=== PATIENT | female | born 1950 | race Caucasian/White ===

== ENCOUNTER → 2016-09-17 | Outpatient (CLI) | payer BC, MEDICARE ==
[~2016-09-17] MED LIST: AMLO2.5T PO; BISA5TAB PO; CALC1TAB PO; DEXA4TAB PO; DOCU100C PO; FAMO20TA8 PO; HYDR-3989 PO; IBUP-14 PO; LISI40TA4 PO; METO-230 PO; METO50TA5 PO; MORP15TA78 PO; MULT-933 PO; RANI150T7 PO; RIVA15TA PO
--- NOTE | 2016-09-17 09:35 | DI ---
INDICATION: ITS.REASON: C50.412 LEFT BREAST CA; C50.511 RIGHT BREAST CA PROCEDURE: CHEST 2-VIEWS UPRIGHT (PA \T\ LAT) Encounter: Subsequent COMPARISON: March 18, 2016 FINDINGS: Chronic small right pleural effusion with lower lobe compressive atelectasis. Prominent interstitial markings in the left lower lung grewal are unchanged. No pneumothorax. Heart size and mediastinal contours are stable. Prior bone cement procedures. Impression: Stable appearance of the chest with chronic right pleural effusion. .
== END ==
LOC: IMA 08:34
PROVIDERS: ATTEND Internal Medicine Medical Oncology
DX: C50.412 Malignant neoplasm of upper-outer quadrant of left female breast (principal); C50.511 Malignant neoplasm of lower-outer quadrant of right female breast; J90 Pleural effusion, not elsewhere classified; J98.11 Atelectasis

== ENCOUNTER 2017-03-10 10:01 | Inpatient (IN) ==
[2017-03-10 10:29] VITALS: BMI 17.6
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
[2017-03-10] MEDS ORDERED: LR 1,000 ML IV SCH (11:15)
[2017-03-10] MEDS ORDERED: ONDANSETRON 4 MG/2 ML INJECTION IVP ONE (11:21)
[2017-03-10] MEDS ORDERED: HYDRALAZINE 20 MG/ML INJECTION IVP ONE (11:26)
[2017-03-10] MEDS: LISINOPRIL 40 MG TABLET PO SCH (12:21)
[2017-03-10] MEDS: PANTOPRAZOLE 40 MG INJECTION IVP SCH ×2 (12:41→21:03)
[2017-03-10] MEDS: NS 1,000 ML IV SCH ×2 (13:03→23:56)
[2017-03-10] MEDS: ONDANSETRON 4 MG/2 ML INJECTION IVP SCH ×2 (14:48→19:47)
[2017-03-10] MEDS: MORPHINE SULFATE 2mg INJECTION IVP PRN ×3 (14:48→20:58)
[2017-03-10] MEDS: HYDRALAZINE 20 MG/ML INJECTION IVP PRN (19:49)
[2017-03-10] MEDS: SALINE FLUSH 10ml SYRINGE IV PRN (21:00)
[2017-03-10] MEDS: MIRTAZAPINE 15 MG TABLET PO SCH ×2 (21:00→21:02)
[2017-03-10] MEDS ORDERED: SENNOSIDES 8.6 MG TABLET PO SCH (21:00)
[2017-03-10] MEDS: SENNOSIDES 25 MG PO SCH ×2 (21:00→21:09)
[2017-03-10] MEDS: MELATONIN 10 MG TABLET PO SCH ×2 (21:00→21:02)
[2017-03-10] MEDS ORDERED: SCOPOLAMINE 1.5 MG PATCH TD SCH (21:00)
[2017-03-10] MEDS ORDERED: BISACODYL 10 MG SUPPOSITORY RECTALLY ONE (21:11)
[2017-03-10] MEDS: MORPHINE SULFATE 4mg INJECTION IVP PRN (22:21)
[2017-03-10] MEDS: PROMETHAZINE 25 MG INJECTION IVP PRN (23:00)
[2017-03-11] MEDS: ONDANSETRON 4 MG/2 ML INJECTION IVP SCH ×2 (01:41→05:06)
[2017-03-11] MEDS: MORPHINE SULFATE 4mg INJECTION IVP PRN ×3 (05:08→17:04)
[2017-03-11] MEDS: PROMETHAZINE 25 MG INJECTION IVP PRN ×3 (05:11→18:46)
[2017-03-11] MEDS: SALINE FLUSH 10ml SYRINGE IV PRN ×2 (05:17→18:46)
[2017-03-11] MEDS ORDERED: PRENATAL VITAMIN TABLET PO SCH (09:00)
--- NOTE | 2017-03-11 09:16 | XRay Report ---
INDICATION: pleural effusions PROCEDURE: CHEST 2-VIEWS UPRIGHT (PA & LAT) Encounter: Initial COMPARISON: March 02, 2017 FINDINGS: Increasing bilateral pleural effusions which remain small. Worsening lower lobe compressive atelectasis, right greater than left. No pneumothorax on this semiupright view. Heart size and mediastinal contours are stable. Pulmonary vascularity is stable. Prior vertebroplasty procedures with bone cement seen in a pulmonary vein. Impression: Increasing small pleural effusions. .
[2017-03-11] MEDS: NS 1,000 ML IV SCH (10:24)
[2017-03-11] MEDS: LISINOPRIL 40 MG TABLET PO SCH (10:34)
[2017-03-11] MEDS: PANTOPRAZOLE 40 MG INJECTION IVP SCH ×2 (10:37→21:11)
[2017-03-11] MEDS: ENOXAPARIN 40 MG/0.4 ML INJECTION SQ SCH (10:38)
[2017-03-11] MEDS: ESCITALOPRAM 5 MG TABLET PO SCH (10:39)
--- NOTE | 2017-03-11 16:08 | Progress Note ---
- Date 03/11/17 Subjective: Mrs. Damon is sleeping. She had morphine and Phenergan earlier. A daughter-in- law is present. She does not think the patient slept well. Her returns. CM present. Family is favoring comfort care and will be meeting with hospice later today. They are trying to decide between home with hospice and going to NH with hospice. Family reports she had pain within an hour of waking and required more meds. Objective Vital signs: Temperature 99.1 F 03/11/17 15:34 Pulse Rate 83 03/11/17 15:34 Respiratory Rate 14 03/11/17 15:34 Blood Pressure 159/89 H 03/11/17 15:34 Pulse Oximetry 94 03/11/17 15:34 Height/Weight/BMI: Height 5 ft 5 in Weight 48.8 kg Body Mass Index 17.6 - Constitutional Present: somnolent - Routine Respiratory Exam Present: diminished air movement - Routine Cardiovascular Exam Present: RRR - Routine Abdominal Exam Present: soft, normoactive bowel sounds, non distended. Absent: tenderness - Routine Neurological Exam sleeping Results - Labs CBC & Chem 7: 03/10/17 11:43 03/10/17 11:43 Assessment and Plan (1) Breast cancer metastasized to bone Current visit: Yes Status: Acute (2) Chemotherapy-induced nausea and vomiting Current visit: Yes Status: Acute (3) Essential hypertension Current visit: Yes Status: Acute Assessment and Plan: Assessment Breast cancer-currently treated with chemotherapy Progressive weakness/debility Cerebral edema Nausea and vomiting Recent UTI History of PE Chronic anticoagulation with Xarelto Hypertension Incontinence Back pain -chronic Constipation Depression Plan Scopolamine added this am. Unclear whether it is helping. Continue to limit pills d/t n/v. BP comes down when able to take meds. Continue morphine and Phenergan. d/w son that controlling nausea may bring significant sedation. IVF stopped d/t increasing pleural effusions and of no benefit if comfort care. Continue morphine prn and fentanyl for pain. Hospital Course Summary Disclaimer: The visit summary below is not to be considered part of the above Progress Note. Hospital Course: Assessment Breast cancer-currently treated with chemotherapy Progressive weakness/debility Cerebral edema Nausea and vomiting Recent UTI History of PE Chronic anticoagulation with Xarelto Hypertension Incontinence Back pain -chronic Constipation Depression 03/10/17-hospital admission for observation Admit patient observation status under hospitalist service (Dr. Blankenship, attending) for IV fluids, antiemetics, and pain control. Lovenox and SCDs for DVT prevention. She is normally on Xarelto, but given her nausea and vomiting will hold this for now. IV Zofran routinely through tomorrow a.m., then can be given when necessary. Will continue her fentanyl patch for pain and use IV morphine as needed until she can tolerate p.o. [place]. Bolus 1 L of lactated Ringer's followed by normal saline at 100 cc per hour. Blood pressure is elevated on admission. Will administer her lisinopril and metoprolol. If blood pressure does not improve, will have prn hydralazine available. Given the results of her urine culture, negative urinalysis today, and the fact that she only has less than a day left of treatment, will DC cephalexin at this time. Patient requests DO NOT RESUSCITATE status Patient's family to review options regarding further care. Will discuss further tomorrow. Case discussed with Dr. Blankenship, Dr. Lucas, and family. Patient's care to return to Dr. Lucas and Boogie upon discharge. 03/10/17 21:18 IVF were started. Scheduling IV Zofran and starting a scopolamine patch. Phenergan to be available prn. Will try a suppository to help address constipation. Minimizing oral meds, but will need to continue antihypertensives. 03/11/17 16:23 Scopolamine added this am. Unclear whether it is helping. Continue to limit pills d/t n/v. BP comes down when able to take meds. Continue morphine and Phenergan. d/w son that controlling nausea may bring significant sedation. IVF stopped d/t increasing pleural effusions and of no benefit if comfort care. Continue morphine prn and fentanyl for pain.
[2017-03-11] MEDS: SENNOSIDES 25 MG PO SCH (21:12)
[2017-03-11] MEDS: MELATONIN 10 MG TABLET PO SCH (21:17)
[2017-03-12] MEDS: HYDRALAZINE 20 MG/ML INJECTION IVP PRN (00:30)
[2017-03-12] MEDS: MORPHINE SULFATE 4mg INJECTION IVP PRN ×6 (01:14→19:36)
[2017-03-12] MEDS: PROMETHAZINE 25 MG INJECTION IVP PRN ×3 (04:44→19:36)
[2017-03-12] MEDS: LISINOPRIL 40 MG TABLET PO SCH (08:57)
[2017-03-12] MEDS: ENOXAPARIN 40 MG/0.4 ML INJECTION SQ SCH (08:58)
[2017-03-12] MEDS ORDERED: ESCITALOPRAM 10 MG TABLET PO SCH (09:00)
[2017-03-12] MEDS: PANTOPRAZOLE 40 MG INJECTION IVP SCH ×2 (09:00→22:29)
[2017-03-12] MEDS: ESCITALOPRAM 5 MG TABLET PO SCH (10:07)
[2017-03-12] MEDS: KETOROLAC 15 MG/ML INJECTION IM SCH ×3 (10:25→22:26)
--- NOTE | 2017-03-12 10:26 | Progress Note ---
- Date 03/12/17 Subjective: Mrs. Damon says pain and nausea are still a big problem. She says her pain is in her abdomen. She agrees with comfort care, as does her . She has little interest in eating. says 2 NH have not had a bed for her. Family does prefer to continue BP meds unless patient can no longer tolerate them. d/w them adding Toradol to help with bone pain. Objective Vital signs: Temperature 98.1 F 03/12/17 07:45 Pulse Rate 94 03/12/17 07:45 Respiratory Rate 18 03/12/17 07:45 Blood Pressure 142/74 H 03/12/17 07:45 Pulse Oximetry 94 03/12/17 07:45 Height/Weight/BMI: Height 5 ft 5 in Weight 47.8 kg Body Mass Index 17.6 - Constitutional Present: somnolent - Routine HEENT Exam Eye: Present: EOMI ENT: Present: mucous membranes moist, dentition normal - Routine Respiratory Exam Present: diminished air movement - Routine Cardiovascular Exam Present: RRR. Absent: murmur - Routine Abdominal Exam Present: soft, normoactive bowel sounds, non distended. Absent: tenderness - Routine Extremities Exam Absent: edema Results - Labs CBC & Chem 7: 03/10/17 11:43 03/10/17 11:43 Assessment and Plan (1) Breast cancer metastasized to bone Current visit: Yes Status: Acute (2) Chemotherapy-induced nausea and vomiting Current visit: Yes Status: Acute (3) Essential hypertension Current visit: Yes Status: Acute Assessment and Plan: Assessment Breast cancer with bone mets-chemotherapy on hold Progressive weakness/debility Cerebral edema Nausea and vomiting Recent UTI History of PE Chronic anticoagulation with Xarelto Hypertension Incontinence Back pain -chronic Constipation Depression Plan Comfort care. Family aware controlling sx may continue to require meds that will sedate her. Scopolamine patch and prn Phenergan to continue. Continue fentanyl patch and prn morphine. Will schedule Toradol. Continue lisinopril and metoprolol as tolerated. Family looking for NH, and hospice will follow. Hospital Course Summary Disclaimer: The visit summary below is not to be considered part of the above Progress Note. Hospital Course: Assessment Breast cancer-currently treated with chemotherapy Progressive weakness/debility Cerebral edema Nausea and vomiting Recent UTI History of PE Chronic anticoagulation with Xarelto Hypertension Incontinence Back pain -chronic Constipation Depression 03/10/17-hospital admission for observation Admit patient observation status under hospitalist service (Dr. Blankenship, attending) for IV fluids, antiemetics, and pain control. Lovenox and SCDs for DVT prevention. She is normally on Xarelto, but given her nausea and vomiting will hold this for now. IV Zofran routinely through tomorrow a.m., then can be given when necessary. Will continue her fentanyl patch for pain and use IV morphine as needed until she can tolerate p.o. [place]. Bolus 1 L of lactated Ringer's followed by normal saline at 100 cc per hour. Blood pressure is elevated on admission. Will administer her lisinopril and metoprolol. If blood pressure does not improve, will have prn hydralazine available. Given the results of her urine culture, negative urinalysis today, and the fact that she only has less than a day left of treatment, will DC cephalexin at this time. Patient requests DO NOT RESUSCITATE status Patient's family to review options regarding further care. Will discuss further tomorrow. Case discussed with Dr. Blankenship, Dr. Lucas, and family. Patient's care to return to Dr. Lucas and Boogie upon discharge. 03/10/17 21:18 IVF were started. Scheduling IV Zofran and starting a scopolamine patch. Phenergan to be available prn. Will try a suppository to help address constipation. Minimizing oral meds, but will need to continue antihypertensives. 03/11/17 16:23 Scopolamine added this am. Unclear whether it is helping. Continue to limit pills d/t n/v. BP comes down when able to take meds. Continue morphine and Phenergan. d/w son that controlling nausea may bring significant sedation. IVF stopped d/t increasing pleural effusions and of no benefit if comfort care. Continue morphine prn and fentanyl for pain. 03/12/17 10:35 Comfort care. Family aware controlling sx may continue to require meds that will sedate her. Scopolamine patch and prn Phenergan to continue. Continue fentanyl patch and prn morphine. Will schedule Toradol. Continue lisinopril and metoprolol as tolerated. Family looking for NH, and hospice will follow.
[2017-03-12] MEDS: ONDANSETRON 4 MG/2 ML INJECTION IVP PRN (17:23)
[2017-03-12] MEDS: SALINE FLUSH 10ml SYRINGE IV PRN (19:37)
[2017-03-12] MEDS: MELATONIN 10 MG TABLET PO SCH (22:33)
[2017-03-13] MEDS: KETOROLAC 15 MG/ML INJECTION IVP SCH ×4 (04:08→22:50)
[2017-03-13] MEDS: KETOROLAC 15 MG/ML INJECTION IM SCH (04:48)
[2017-03-13] MEDS: MELATONIN 5 MG TABLET PO SCH ×2 (06:35→22:39)
[2017-03-13] MEDS: ONDANSETRON 4 MG/2 ML INJECTION IVP PRN ×2 (06:44→13:51)
[2017-03-13] MEDS: MORPHINE SULFATE 4mg INJECTION IVP PRN ×3 (06:44→20:19)
[2017-03-13] MEDS ORDERED: SCOPOLAMINE PATCH REMOVAL TD SCH (09:00)
[2017-03-13] MEDS: PROMETHAZINE 25 MG INJECTION IVP PRN ×2 (09:15→20:20)
[2017-03-13] MEDS: PANTOPRAZOLE 40 MG INJECTION IVP SCH ×2 (09:17→20:20)
[2017-03-13] MEDS: LISINOPRIL 40 MG TABLET PO SCH (10:22)
[2017-03-13] MEDS ORDERED: METOCLOPRAMIDE 10mg/2ml INJECTION IVP PRN (11:53)
[2017-03-13] MEDS ORDERED: MORPHINE SULFATE 10mg/0.5ml ORAL LIQ SL PRN (11:53)
[2017-03-13] MEDS ORDERED: SCOPOLAMINE 1.5 MG PATCH TD SCH (12:00)
[2017-03-13] MEDS ORDERED: HALOPERIDOL 0.5 MG TABLET PO PRN (14:26)
--- NOTE | 2017-03-13 14:47 | Progress Note ---
- Date 03/13/17 Subjective: Mrs. Damon says her pain and nausea are improved. She is needing frequent meds to control these. Her daughter says she took a few sips of water and some ice chips. Objective Vital signs: Temperature 98.1 F 03/13/17 00:00 Pulse Rate 94 03/13/17 08:00 Respiratory Rate 16 03/13/17 08:00 Blood Pressure 141/73 H 03/13/17 08:00 Pulse Oximetry 93 03/13/17 08:00 Height/Weight/BMI: Height 5 ft 5 in Weight 47 kg Body Mass Index 17.6 - Constitutional Present: mild distress - Routine HEENT Exam Eye: Present: EOMI ENT: Present: mucous membranes moist, dentition normal - Routine Respiratory Exam Present: diminished air movement - Routine Cardiovascular Exam Present: RRR, S1, S2, no murmur - Routine Abdominal Exam Present: soft, non distended, non tender - Routine Extremities Exam Absent: cyanosis, clubbing, edema Results - Labs CBC & Chem 7: 03/10/17 11:43 03/10/17 11:43 Assessment and Plan (1) Breast cancer metastasized to bone Current visit: Yes Status: Acute (2) Chemotherapy-induced nausea and vomiting Current visit: Yes Status: Acute (3) Essential hypertension Current visit: Yes Status: Acute Assessment and Plan: Assessment Breast cancer with bone mets-chemotherapy on hold Progressive weakness/debility Cerebral edema Nausea and vomiting Recent UTI History of PE Chronic anticoagulation with Xarelto Hypertension Incontinence Back pain -chronic Constipation Depression Plan Comfort care. Will begin inpatient hospice with [facility] following. Pain improved with Toradol and will continue it. Will continue fentanyl patch and convert iv morphine to roxanol. Will add prn Haldol to scheduled Zofran, prn phenergan and scopolamine patch. Add Decadron. Continue BP meds as long as she can tolerate them. Hospital Course Summary Disclaimer: The visit summary below is not to be considered part of the above Progress Note. Hospital Course: Assessment Breast cancer-currently treated with chemotherapy Progressive weakness/debility Cerebral edema Nausea and vomiting Recent UTI History of PE Chronic anticoagulation with Xarelto Hypertension Incontinence Back pain -chronic Constipation Depression 03/10/17-hospital admission for observation Admit patient observation status under hospitalist service (Dr. Blankenship, attending) for IV fluids, antiemetics, and pain control. Lovenox and SCDs for DVT prevention. She is normally on Xarelto, but given her nausea and vomiting will hold this for now. IV Zofran routinely through tomorrow a.m., then can be given when necessary. Will continue her fentanyl patch for pain and use IV morphine as needed until she can tolerate p.o. [place]. Bolus 1 L of lactated Ringer's followed by normal saline at 100 cc per hour. Blood pressure is elevated on admission. Will administer her lisinopril and metoprolol. If blood pressure does not improve, will have prn hydralazine available. Given the results of her urine culture, negative urinalysis today, and the fact that she only has less than a day left of treatment, will DC cephalexin at this time. Patient requests DO NOT RESUSCITATE status Patient's family to review options regarding further care. Will discuss further tomorrow. Case discussed with Dr. Blankenship, Dr. Lucas, and family. Patient's care to return to Dr. Lucas and Boogie upon discharge. 03/10/17 21:18 IVF were started. Scheduling IV Zofran and starting a scopolamine patch. Phenergan to be available prn. Will try a suppository to help address constipation. Minimizing oral meds, but will need to continue antihypertensives. 03/11/17 16:23 Scopolamine added this am. Unclear whether it is helping. Continue to limit pills d/t n/v. BP comes down when able to take meds. Continue morphine and Phenergan. d/w son that controlling nausea may bring significant sedation. IVF stopped d/t increasing pleural effusions and of no benefit if comfort care. Continue morphine prn and fentanyl for pain. 03/12/17 10:35 Comfort care. Family aware controlling sx may continue to require meds that will sedate her. Scopolamine patch and prn Phenergan to continue. Continue fentanyl patch and prn morphine. Will schedule Toradol. Continue lisinopril and metoprolol as tolerated. Family looking for NH, and hospice will follow. 03/13/17 15:04 Comfort care. Will begin inpatient hospice with [facility] following. Pain improved with Toradol and will continue it. Will continue fentanyl patch and convert iv morphine to roxanol. Will add prn Haldol to scheduled Zofran, prn phenergan and scopolamine patch. Add Decadron. Continue BP meds as long as she can tolerate them.
[2017-03-13] MEDS: LORazepam 0.5 MG TABLET PO SCH ×2 (15:04→20:18)
[2017-03-13] MEDS: DEXAMETHASONE 4 MG/ML INJECTION IVP SCH (16:35)
[2017-03-13] MEDS: MORPHINE SULFATE 10mg/0.5ml ORAL LIQ SL SCH (17:12)
[2017-03-13] MEDS: MORPHINE SULFATE 10mg/0.5ml ORAL LIQ SL PRN (18:11)
[2017-03-13] MEDS: SALINE FLUSH 10ml SYRINGE IV PRN (20:21)
[2017-03-14] MEDS: MORPHINE SULFATE 10mg/0.5ml ORAL LIQ SL SCH ×4 (00:06→17:33)
[2017-03-14] MEDS: LORazepam 0.5 MG TABLET PO SCH ×4 (02:43→21:22)
[2017-03-14] MEDS: ONDANSETRON 4 MG/2 ML INJECTION IVP PRN ×2 (02:44→21:24)
[2017-03-14] MEDS: MORPHINE SULFATE 10mg/0.5ml ORAL LIQ SL PRN ×4 (02:44→21:25)
[2017-03-14] MEDS: PROMETHAZINE 25 MG INJECTION IVP PRN ×3 (04:22→17:34)
[2017-03-14] MEDS: DEXAMETHASONE 4 MG/ML INJECTION IVP SCH ×2 (04:23→15:51)
[2017-03-14] MEDS: SALINE FLUSH 10ml SYRINGE IV PRN ×2 (04:24→21:25)
[2017-03-14] MEDS: KETOROLAC 15 MG/ML INJECTION IVP SCH ×4 (04:24→21:24)
[2017-03-14] MEDS: LISINOPRIL 40 MG TABLET PO SCH (08:18)
[2017-03-14] MEDS: PANTOPRAZOLE 40 MG INJECTION IVP SCH ×2 (08:18→21:23)
--- NOTE | 2017-03-14 09:15 | Progress Note ---
<Denise Chacon V - Last Filed: 03/14/17 09:10> - Date 03/14/17 Subjective: Danisha is seen this morning while resting comfortably in bed. Her daughter is at the bedside and reports she has some intermittent episodes of confusion. Otherwise family is pleased with the comfort level. Princess denies pain at time of examination. She reports nausea is currently under control. Vital signs stable, Breathing on room air without distress. Objective Vital signs: Temperature 96.9 F 03/14/17 07:07 Pulse Rate 90 03/14/17 07:07 Respiratory Rate 16 03/14/17 07:07 Blood Pressure 134/83 03/14/17 07:07 Pulse Oximetry 94 03/14/17 07:07 Height/Weight/BMI: Height 1.65 m Weight 46.3 kg Body Mass Index 17.6 - Constitutional Present: no acute distress, well developed - Routine HEENT Exam Eye: Present: EOMI ENT: Present: mucous membranes moist, dentition normal - Routine Respiratory Exam Present: CTA bilaterally. Absent: wheezes - Routine Cardiovascular Exam Present: RRR, S1, S2. Absent: murmur - Routine Abdominal Exam Present: soft, normoactive bowel sounds, non distended. Absent: tenderness - Routine Skin Exam Present: intact, dry, warm - Routine Neurological Exam Present: alert, CN II-XII intact - Routine Lymphatic Exam Lymphatic: Absent: adenopathy - Routine Psychiatric Exam Present: cooperative Results - Labs CBC & Chem 7: 03/10/17 11:43 03/10/17 11:43 Assessment and Plan (1) Breast cancer metastasized to bone Current visit: Yes Status: Acute (2) Chemotherapy-induced nausea and vomiting Current visit: Yes Status: Acute (3) Essential hypertension Current visit: Yes Status: Acute Assessment and Plan: Assessment Breast cancer with bone mets-chemotherapy on hold Progressive weakness/debility Cerebral edema Nausea and vomiting Recent UTI History of PE Chronic anticoagulation with Xarelto Hypertension Incontinence Back pain -chronic Constipation Depression Plan Remains Comfort care with [facility]. Today pain and nausea appear to be much better controlled. Continue on Fentanyl patch with PO Roxanol. Scopolamine patch, along with Reglan, Phenergan and Zofran as needed for nausea control. Continues on BID Decadron Spoke with [facility] nurse. Planning for transfer to [facility] on Thursday Hospital Course Summary Disclaimer: The visit summary below is not to be considered part of the above Progress Note. Hospital Course: Assessment Breast cancer-currently treated with chemotherapy Progressive weakness/debility Cerebral edema Nausea and vomiting Recent UTI History of PE Chronic anticoagulation with Xarelto Hypertension Incontinence Back pain -chronic Constipation Depression 03/10/17-hospital admission for observation Admit patient observation status under hospitalist service (Dr. Blankenship, attending) for IV fluids, antiemetics, and pain control. Lovenox and SCDs for DVT prevention. She is normally on Xarelto, but given her nausea and vomiting will hold this for now. IV Zofran routinely through tomorrow a.m., then can be given when necessary. Will continue her fentanyl patch for pain and use IV morphine as needed until she can tolerate p.o. [place]. Bolus 1 L of lactated Ringer's followed by normal saline at 100 cc per hour. Blood pressure is elevated on admission. Will administer her lisinopril and metoprolol. If blood pressure does not improve, will have prn hydralazine available. Given the results of her urine culture, negative urinalysis today, and the fact that she only has less than a day left of treatment, will DC cephalexin at this time. Patient requests DO NOT RESUSCITATE status Patient's family to review options regarding further care. Will discuss further tomorrow. Case discussed with Dr. Blankenship, Dr. Lucas, and family. Patient's care to return to Dr. Lucas and Boogie upon discharge. 03/10/17 21:18 IVF were started. Scheduling IV Zofran and starting a scopolamine patch. Phenergan to be available prn. Will try a suppository to help address constipation. Minimizing oral meds, but will need to continue antihypertensives. 03/11/17 16:23 Scopolamine added this am. Unclear whether it is helping. Continue to limit pills d/t n/v. BP comes down when able to take meds. Continue morphine and Phenergan. d/w son that controlling nausea may bring significant sedation. IVF stopped d/t increasing pleural effusions and of no benefit if comfort care. Continue morphine prn and fentanyl for pain. 03/12/17 10:35 Comfort care. Family aware controlling sx may continue to require meds that will sedate her. Scopolamine patch and prn Phenergan to continue. Continue fentanyl patch and prn morphine. Will schedule Toradol. Continue lisinopril and metoprolol as tolerated. Family looking for NH, and hospice will follow. 03/13/17 15:04 Comfort care. Will begin inpatient hospice with [facility] following. Pain improved with Toradol and will continue it. Will continue fentanyl patch and convert iv morphine to roxanol. Will add prn Haldol to scheduled Zofran, prn phenergan and scopolamine patch. Add Decadron. Continue BP meds as long as she can tolerate them. 03/14/17 -Remains Comfort care with [facility]. Today pain and nausea appear to be much better control on Fentanyl patch with PO Roxanol. Scopolamine patch, along with Reglan, Phenergan and Zofran as needed for nausea control. Planning for transfer to [facility] on Thursday <Oleksandr Cohn - Last Filed: 03/14/17 17:04> - Date 03/14/17 Objective Vital signs: Temperature 97.7 F 03/14/17 15:18 Pulse Rate 96 03/14/17 15:18 Respiratory Rate 16 03/14/17 15:18 Blood Pressure 137/71 03/14/17 15:18 Pulse Oximetry 95 03/14/17 15:18 Height/Weight/BMI: Height 5 ft 5 in Weight 46.3 kg Body Mass Index 17.6 Results - Labs CBC & Chem 7: 03/10/17 11:43 03/10/17 11:43 Assessment and Plan (1) Breast cancer metastasized to bone Current visit: Yes Status: Acute (2) Chemotherapy-induced nausea and vomiting Current visit: Yes Status: Acute (3) Essential hypertension Current visit: Yes Status: Acute Assessment and Plan: Pt resting comfortably. Nausea seems to be better controlled with current regimen. Cont. to monitor and transfer when possible. I agree with SLOPE HOIST OPERATOR/AUDIOVISUAL LIBRARIAN evaluation and findings. I evaluated the patient independently and discussed the plan with SLOPE HOIST OPERATOR/AUDIOVISUAL LIBRARIAN. Hospital Course Summary Disclaimer: The visit summary below is not to be considered part of the above Progress Note.
[2017-03-14] MEDS: MELATONIN 5 MG TABLET PO SCH (21:56)
[2017-03-15] MEDS: MORPHINE SULFATE 10mg/0.5ml ORAL LIQ SL SCH ×4 (00:11→17:07)
[2017-03-15] MEDS: PROMETHAZINE 25 MG INJECTION IVP PRN ×3 (00:12→12:12)
[2017-03-15] MEDS: KETOROLAC 15 MG/ML INJECTION IVP SCH ×4 (03:15→21:01)
[2017-03-15] MEDS: LORazepam 0.5 MG TABLET PO SCH ×4 (03:16→21:01)
[2017-03-15] MEDS: SALINE FLUSH 10ml SYRINGE IV PRN ×3 (03:16→06:16)
[2017-03-15] MEDS: DEXAMETHASONE 4 MG/ML INJECTION IVP SCH ×2 (03:29→14:14)
[2017-03-15] MEDS: MORPHINE SULFATE 10mg/0.5ml ORAL LIQ SL PRN (04:22)
[2017-03-15] MEDS: PANTOPRAZOLE 40 MG INJECTION IVP SCH ×2 (08:07→21:03)
[2017-03-15] MEDS: LISINOPRIL 40 MG TABLET PO SCH (08:07)
[2017-03-15 15:56] VITALS: RESP 16
--- NOTE | 2017-03-15 16:11 | Progress Note ---
- Date 03/15/17 Subjective: Pt resting comfortably. Objective Vital signs: Temperature 96.4 F L 03/15/17 00:00 Pulse Rate 87 03/15/17 15:52 Respiratory Rate 16 03/15/17 15:52 Blood Pressure 138/92 H 03/15/17 15:52 Pulse Oximetry 93 03/15/17 15:52 Height/Weight/BMI: Height 5 ft 5 in Weight 46 kg Body Mass Index 17.6 Results - Labs CBC & Chem 7: 03/10/17 11:43 03/10/17 11:43 Assessment and Plan (1) Breast cancer metastasized to bone Current visit: Yes Status: Acute (2) Chemotherapy-induced nausea and vomiting Current visit: Yes Status: Acute (3) Essential hypertension Current visit: Yes Status: Acute Assessment and Plan: Pt resting comfortably. Nausea seems to be better controlled with current regimen. Cont. to monitor and transfer when possible. I agree with MICROBIOLOGY SOIL SCIENTIST/NEON SIGN WORKER evaluation and findings. I evaluated the patient independently and discussed the plan with MICROBIOLOGY SOIL SCIENTIST/NEON SIGN WORKER. Hospital Course Summary Disclaimer: The visit summary below is not to be considered part of the above Progress Note. Hospital Course: Assessment Breast cancer-currently treated with chemotherapy Progressive weakness/debility Cerebral edema Nausea and vomiting Recent UTI History of PE Chronic anticoagulation with Xarelto Hypertension Incontinence Back pain -chronic Constipation Depression 03/10/17-hospital admission for observation Admit patient observation status under hospitalist service (Dr. Blankenship, attending) for IV fluids, antiemetics, and pain control. Lovenox and SCDs for DVT prevention. She is normally on Xarelto, but given her nausea and vomiting will hold this for now. IV Zofran routinely through tomorrow a.m., then can be given when necessary. Will continue her fentanyl patch for pain and use IV morphine as needed until she can tolerate p.o. [place]. Bolus 1 L of lactated Ringer's followed by normal saline at 100 cc per hour. Blood pressure is elevated on admission. Will administer her lisinopril and metoprolol. If blood pressure does not improve, will have prn hydralazine available. Given the results of her urine culture, negative urinalysis today, and the fact that she only has less than a day left of treatment, will DC cephalexin at this time. Patient requests DO NOT RESUSCITATE status Patient's family to review options regarding further care. Will discuss further tomorrow. Case discussed with Dr. Blankenship, Dr. Lucas, and family. Patient's care to return to Dr. Lucas and Boogie upon discharge. 03/10/17 21:18 IVF were started. Scheduling IV Zofran and starting a scopolamine patch. Phenergan to be available prn. Will try a suppository to help address constipation. Minimizing oral meds, but will need to continue antihypertensives. 03/11/17 16:23 Scopolamine added this am. Unclear whether it is helping. Continue to limit pills d/t n/v. BP comes down when able to take meds. Continue morphine and Phenergan. d/w son that controlling nausea may bring significant sedation. IVF stopped d/t increasing pleural effusions and of no benefit if comfort care. Continue morphine prn and fentanyl for pain. 03/12/17 10:35 Comfort care. Family aware controlling sx may continue to require meds that will sedate her. Scopolamine patch and prn Phenergan to continue. Continue fentanyl patch and prn morphine. Will schedule Toradol. Continue lisinopril and metoprolol as tolerated. Family looking for NH, and hospice will follow. 03/13/17 15:04 Comfort care. Will begin inpatient hospice with [facility] following. Pain improved with Toradol and will continue it. Will continue fentanyl patch and convert iv morphine to roxanol. Will add prn Haldol to scheduled Zofran, prn phenergan and scopolamine patch. Add Decadron. Continue BP meds as long as she can tolerate them. 03/14/17 -Remains Comfort care with [facility]. Today pain and nausea appear to be much better control on Fentanyl patch with PO Roxanol. Scopolamine patch, along with Reglan, Phenergan and Zofran as needed for nausea control. Planning for transfer to [facility] on Thursday03/15/17 16:10 Remains comfort care with hospice following. N/v better controlled. Cont. current management with plan to transfer tomorrow to hospice.
[2017-03-15] MEDS: MELATONIN 5 MG TABLET PO SCH (21:01)
[2017-03-15] MEDS: ONDANSETRON 4 MG/2 ML INJECTION IVP PRN (21:08)
[2017-03-16] MEDS: MORPHINE SULFATE 10mg/0.5ml ORAL LIQ SL SCH ×3 (01:05→12:02)
[2017-03-16 01:12] VITALS: TEMP 96.2
[2017-03-16] MEDS: KETOROLAC 15 MG/ML INJECTION IVP SCH ×3 (03:45→15:39)
[2017-03-16] MEDS: DEXAMETHASONE 4 MG/ML INJECTION IVP SCH ×2 (03:45→15:38)
[2017-03-16] MEDS: LORazepam 0.5 MG TABLET PO SCH ×3 (03:45→13:55)
[2017-03-16] MEDS: LISINOPRIL 40 MG TABLET PO SCH (08:37)
[2017-03-16] MEDS: PANTOPRAZOLE 40 MG INJECTION IVP SCH (08:37)
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
[2017-03-16 10:09] VITALS: BP 141/90; PULSE 91; O2SAT 94
--- NOTE | 2017-03-16 10:35 | Extended Care Facility Orders ---
Admission Orders Admit to:: ICF, Hospice Allergies/Adverse Reactions: Allergies No Known Allergies Allergy (Verified 03/10/17 10:41) Admitting Diagnosis: Dehydration, intractable nausea, metastatic breast cancer Admitting Physician: Oleksandr Cohn MD Attending Physician: Oleksandr Cohn MD Code Status: Do Not Resuscitate Anticiapted Length of Stay: 30 days or less Rehab Potential: poor Rehab Prognosis: poor Diet: Regular Diet [DIET] Diet Modifications: pt prefers meal replacement shakes - prefers vanilla May use Facility Protocol or Standing Orders: Yes May have flu vaccine: Yes Penitentiary Certification: I certify that SNF services are required to be given on an Inpatient basis because of the patients need for residential care on a continuing basis for the condition(s) for which he/she received inpatient hospital services prior to his/her transfer to the SNF. SNF inpatient care is necessary for the following reasons Indication for Penitentiary: Not Applicable (Hospice with [facility]) - Additional Information In Event of Arrest: Do Not Start CPR Referrals: Rosmery Lucas MD [Family Provider] - Karely Hyman MD [Physician] -
[2017-03-16] MEDS: PROMETHAZINE 25 MG INJECTION IVP PRN (15:39)
[2017-03-16] MEDS: SALINE FLUSH 10ml SYRINGE IV PRN (15:39)
== END 2017-03-16 16:16 | disposition hospice, home (50) | DRG 597 ==
LOC: MED → SUATTDRO 03-11 13:47
PROVIDERS: ADMIT Hospitalist; ATTEND Internal Medicine